=== PATIENT | male | born 1965 | race Two or more races ===

== ENCOUNTER 2022-07-28 05:45 | Day surgery (SDC) | payer OTHER ==
[~2022-07-28] VITALS: Ht 165.1 cm; Wt 97.5 kg
[~2022-07-28 05:45] MED LIST: ATORVASTATIN CA10 MG PO; CLONAZEPAM2 MG PO; METFORMIN HCL500 M3 PO
[2022-07-28] MEDS ORDERED: COLACE100 MG PO (11:48)
[2022-07-28] MEDS ORDERED: TRAM1TAB98 PO (11:48)
== END 2022-07-28 15:25 | disposition home or self-care (01) ==
LOC: CIR.AMB 05:45
PROVIDERS: ATTEND Surgery
DX: K60.3 Anal fistula (principal); K62.89 Other specified diseases of anus and rectum; Z20.822 Contact with and (suspected) exposure to COVID-19; I10 Essential (primary) hypertension; F17.210 Nicotine dependence, cigarettes, uncomplicated; E11.9 Type 2 diabetes mellitus without complications; Z79.84 Long term (current) use of oral hypoglycemic drugs